=== PATIENT | female | born 1985 | race Caucasian/White ===

== ENCOUNTER 2021-08-01 12:54 | Emergency (ER) | payer SELFPAY ==
[~2021-08-01] VITALS: Ht 160 cm; Wt 52.2 kg
[2021-08-01 13:05] VITALS: BP 93/60
== END 2021-08-01 18:55 | disposition left against medical advice (07) ==
LOC: ER 12:54
DX: M79.10 Myalgia, unspecified site (principal); R11.2 Nausea with vomiting, unspecified; Z53.21 Procedure and treatment not carried out due to patient leaving prior to being seen by health care provider